=== PATIENT | female | born 1950 | race Caucasian/White ===

== ENCOUNTER 2025-01-09 15:33 | Outpatient (REF) | payer MEDICARE, OTHER, SELFPAY ==
--- NOTE | ~2025-01-09 | MR_ITS ---
EXAMINATION: MR BRAIN WITHOUT AND WITH CONTRAST CLINICAL INFORMATION: No evidence COMPARISON: None available. TECHNIQUE: Multiplanar, multisequence MRI of the brain was obtained before and after the intravenous administration of 4.5 mL gadolinium based (Gadavist) without reported immediate complications. FINDINGS: No restricted diffusion. No abnormal enhancement lesion and or mass within the intra-axial or the extra-axial compartment. Bilateral multifocal patchy and punctate deep periventricular white matter and subcortical white matter hyperintense T2 FLAIR signal involving centrum semiovale and greer radiata, similar findings in the estiven and left cerebellum. Focal susceptibility signal left temporal white matter. Flow-void signal within the main cerebral vessels is normal. Sellar/suprasellar region demonstrated no mass or signal abnormality. Craniocervical junction is intact and normal. MR/MR head/brain wo/w con IMPRESSION: No acute ischemia or acute brain abnormality. 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 Old lacunar infarcts involving the posterior circulation. No abnormal enhancing lesion and or mass. 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 Electronically signed by: Ger Glover MD 01/10/2025 07:21 AM EDT
[2025-01-09] MEDS: gadobutroL 7.5 ML VIAL IVPUSH (16:43)
--- OUTSIDE RECORDS SUMMARY | 2025-01-09 18:38 | XMS_ITS | Clinical Summary ---
Author Organization [facility] Address [address] [place] [address] Care Team Providers Care Data Conversion Developer Name Role Phone Champ King MD Primary Care Provider Allergies Active Allergy Reactions Criticality Noted Date Comments Dust 10/05/2017 Pollen Extract 10/05/2017 Medications Medication Sig Dispensed Refills Start Date End Date Status Atorvastatin Calcium (LIPITOR PO) Take by mouth. 0 Active cholecalciferol (VITAMIN D3) 1000 UNITS tablet Take 1,000 Units by mouth daily. 0 Active budesonide-formotero l (SYMBICORT) 160-4.5 MCG/ACT inhaler Inhale 2 inhalations into the lungs 2 (two) times a day. 0 Active Clopidogrel Bisulfate (PLAVIX PO) Take by mouth. 0 Active Active Problems Problem Noted Date Diagnosed Date Tobacco abuse disorder 10/27/2017 Overview: 30-40 pack years. Currently 10 cigarettes daily(10/27/2017) Pulmonary emphysema 10/27/2017 Hypercholesterolemia 10/27/2017 Osteoarthritis involving mul tiple joints on both sides of body 10/27/2017 Malignant neoplasm of upper lobe of right lung 0 10/05/2017 Cancer Staging:Clinical stage from 09/17/2017:Stage IIIA(cT1b, cN2, cM0) - Unsigned Pathologic:Stage IIIA(pT1b, pN2, cM0) - Unsigned Peripheral vascular obstructive disease 10/05/19 18 Family History Medical History Relation Name Comments Cancer Mother breast Cancer Sister breast Relation Name Status Comments Mother Sister Social History Tobacco Use Types Packs/Day Years Used Date Smoking Tobacco: Every Day Cigarettes 0.8 50 Started: 1964 Smokeless Tobacco: Never Tobacco Cessation:Ready to Q uit: Yes; Counseling Given: Yes Alcohol Use Standard Drinks/Week Comments Yes 0 (1 standard drink = 0.6 oz pur e alcohol) rare Sex and Gender Information Value Date Recorded Sex Assigned at Not on file Gender Identity Not on file Sexual Orientation Not on file Last Filed Vital Signs Vital Sign Reading Time Taken Comments Blood Pressure 140/77 10/05/2017 11:03 AM EST Pulse 72 10/05/2017 11:03 AM EST Temperature - - Respiratory Rate - - Oxygen Saturation - - Inhaled Oxygen Concentration - - Weight 53.8 kg (118 lb 9.6 oz) 10/05/2017 11:03 AM EST Height 160 cm (5' 3 ) 10/05/2017 11:03 AM EST Body Mass Index 21.01 10/05/2017 11:03 AM EST Plan of Treatment Health Maintenance Due Date Last Done Comments Hepatitis C Screening 1950 COVID-19 Vaccine (#1) 01/19/1957 Pneumococcal Vaccine (1 of 2 - PCV) 01/19/1958 Depression Screening 1964 Preventative Health Evaluation 01/19/1970 DTap / Tdap / Td (1 - Tdap) 01/19/1971 Shingrix-Zoster Vaccine (1 of 2) 01/19/1971 Colon Cancer Screening (Colonoscopy) 01/19/1997 Breast Cancer Screening (Mammogram) 01/19/2002 RSV Adult > 60+ Yrs or Pregn ant (1 - Risk 60-74 years 1-dose series) 2012 Fall Risk Assessment 01/19/2017 Osteoporosis Screening (DEXA Scan) 01/19/2017 Influenza Vaccine (#1) 2024 Hepatitis B Vaccines Aged Out No long er eligible based on patient's age to complete this topic RSV Ped < 20 months Aged Out No longe r eligible based on patient's age to complete this topic Care Teams Data Conversion Developer Relationship Specialty Start Date End Date Champ King MD [address] [place] [address] PCP - General Internal Medicine 09/30/17
--- OUTSIDE RECORDS SUMMARY | 2025-01-09 18:39 | XMS_ITS | Clinical Summary ---
Author Organization [address] Address [address] [place] [phone] Phone Care Team Providers Care Airworthiness Inspector Name Role Phone Nithin Ng MD Primary Care Provider Allergies Active Allergy Reactions Criticality Noted Date Comments Garlic 09/04/2024 Difficulty breathing Shrimp 09/04/2024 vomiting Medications acetaminophen (TYLENOL) 125 mg Take by mouth. Active albuterol HFA (PROAIR HFA ; PROVENTIL HFA ; VENTOLIN HFA) 90 mcg/actuation inhaler Inhale 2 puffs by mouth every 6 (six) hours if needed for wheezing. Active metoprolol succinate (TOPROL-XL) 25 mg 24 hr tablet Take 1 tablet (25 mg total) by mouth 1 (one) time each day. Do not crush or chew. 90 tablet 3 5 Active lisinopriL (PRINIVIL,ZESTR IL) 2.5 mg tablet Take 1 tablet (2.5 mg total) by mouth 1 (one) time each day. 90 each 5 Active atorvastatin (LIPITOR) 40 mg tablet Take 1 tablet (40 mg total) by mouth 1 (one) time each day. 90 each 5 Active aspirin 81 mg EC tablet Take 1 tablet (81 mg total) by mouth 1 (one) time each day. 90 tablet 3 5 Active varenicline tartrate (CHANTIX ISAAC) 0.5 mg (11)- 1 mg (42) tablet Take 0.5 mg by mouth 1 (one) time each day for 3 days (days 1-3), THEN 0.5 mg 2 (two) times a day for 4 days (days 4-7), THEN 1 mg 2 (two) times a day for 12 weeks. 53 tablet 1 5 03/19/20 25 Active primidone (MYSOLINE) 50 mg tablet Take 0.5 tablets (25 mg total) by mouth at bedtime. Active calcium carb/vit D3/minerals (CALCIUM-VITAMI N D ORAL) Take 1 tablet by mouth 2 times daily. 1 12/30/19 25 Discontinu ed(Prescri eliud Discontinu ed) aspirin 81 mg EC tablet Take 1 tablet (81 mg total) by mouth 1 (one) time each day. 90 tablet 1 4 12/20/19 25 Discontinu ed(Reorder ) metoprolol succinate (TOPROL-XL) 25 mg 24 hr tablet Take 1 tablet (25 mg total) by mouth 1 (one) time each day. Do not crush or chew. 90 tablet 1 4 12/20/19 25 Discontinu ed(Reorder ) lisinopriL (PRINIVIL,ZESTR IL) 2.5 mg tablet Take 1 tablet (2.5 mg total) by mouth 1 (one) time each day. 90 each 1 4 12/20/19 25 Discontinu ed(Reorder ) atorvastatin (LIPITOR) 40 mg tablet Take 1 tablet (40 mg total) by mouth 1 (one) time each day. 90 each 1 4 12/20/19 25 Discontinu ed(Reorder ) Active Problems Problem Noted Date Diagnosed Date Arterial embolism and thrombosis 12/29/2024 Overview (12/29/2024): Unfortunately, cannot get the records as they are from the old [employer] system at [facility] which I no longer have access to for unclear reasons. Furthermore for unclear reasons these records were never scanned into either [facility] medical record Based on patient description and notes from other medical providers: - It sounds like she presented with acute limb ischemia in 2017. She was found to have acute ischemia of her left toes-status post some sort of peripheral procedure-presumably by Dr. Castellon with thrombectomy with left SFA stent - Per Dr. Alvarado's last note from July 2020, she had negative arterial duplex Doppler ultrasounds of the bilateral lower extremities with absolutely no stenoses-therefore he believed that this was an acute embolic event rather than an atherosclerotic event - Due to intermittent follow-up, the patient has largely been without antiplatelet agents over the subsequent years up until recently-she has remained on baby aspirin at least Assessment & Plan (12/29/2024 5:00 PM EDT): History of acute limb ischemia in 2017. - Arrange ILR at [facility] to investigate potential atrial arrhythmias leading to acute and occult thrombus and cardioembolic phenomenon. - Continue baby aspirin. Orders: Case Request EP Lab: Loop recorder insertion Cardiomyopathy, nonischemic 12/29/2024 Overview (12/29/2024): - Patient presented with an unwitnessed syncopal episode in January 2024 after her niece found her lying on the floor-she reported that before that episode she was feeling very ill-just very rundown - She was diagnosed acute right lower lobe ehumovdgy-npocqevvu-hiiwattk bacterial and was treated with antibiotics -She was found to have an elevated high-sensitivity troponin during that visit- she was treated with 48 hours of IV heparin and started on low-dose lisinopril and metoprolol -echocardiogram during the above-mentioned hospitalization showed EF of 40 to 45% with inferobasal akinesis -Cardiac cath performed during the hospitalization in January 2024 only moderate, diffuse disease in all 3 territories without discrete stenoses-therefore she has nonischemic cardiomyopathy Assessment & Plan (12/29/2024 5:00 PM EDT): Would like to update echocardiogram to assess if EF has recovered. It is possible that this was related to acute sick state. I will set up an echocardiogram first available to reassess. Coronary artery disease invo lving huslia coronary artery of huslia heart without angina pectoris 09/04/2024 Overview (12/29/2024): -status post non-ST elevation [place] in January 2024 with moderate nonobstructive epicardial coronary disease by cardiac cath Assessment & Plan (12/29/2024 5:00 PM EDT): - Nonobstructive disease, no anginal symptoms - Continue atorvastatin 40 mg and baby aspirin. Patient's last lipids were exceptionally high but I wonder if she was not taking atorvastatin faithfully. Would repeat a fasting lipid profile as is planned prior to her next PCP visit. Orders: Ambulatory referral to Cardiology ECG 12 lead Transthoracic echocardiogram (TTE) complete with PRN contrast, bubble, strain, and 3D order panel; Future Other osteoporosis without current pathological fracture 09/04/2024 Family history of breast cancer 09/04/2024 History of DVT (deep vein thrombosis) 09/04/2024 Overview (09/04/2024): DVT on left leg artery July 2017 status post drain placement. Was on Plavix previously. Hyperlipidemia 12/12/2020 Essential (primary) hypertension 12/12/2020 Assessment & Plan (12/29/2024 5:00 PM EDT): Well-controlled today on current regimen of low-dose lisinopril and metoprolol Insomnia 12/12/2020 Simple cyst of breast, left 12/12/2020 Overview (07/19/2024): 08/23/18 lateral upper L breast. Persistent asymmetry on diagnostic mammograms Vertigo 09/11/2020 Malignant neoplasm of right lung 09/11/2020 Overview (07/19/2024): T1N2 (llla) adenocarcinoma. Secondary malignant neoplasm of mediastinal lymph node S/P Incomplete chemotherapy . S/P VATS R upper lobectomy - [facility] 02/2018 Kidney stone 09/11/2020 Chronic headaches 05/05/2016 Resolved Problems Problem Noted Date Diagnosed Date Resolved Date NSTEMI (non-ST elevated myoc ardial infarction) 12/25/2024 12/29/2024 History of non-ST elevation myocardial infarction (NSTEMI) 09/04/2024 12/29/2024 Assessment & Plan (09/04/2024 12:36 PM EST): Diagnosed during admission to [facility] in January 2024. Elevated troponins. Cardiac cath done, no stent placed. Was started on medical management. Encounters Date Type Department Care Team Description 12/29/2024 1:00 PM EDT Office Visit [facility] - [address] [place] [address] Krista Kim MD Cardiomyopathy, nonischemic (CMS/HCC) (Primary Dx); Coronary artery disease involving huslia coronary artery of huslia heart without angina pectoris; Arterial embolism and thrombosis (CMS/HCC); Essential (primary) hypertension 12/27/2024 Telephone Adult Medicine [address] [phone] Nithin Ng MD 12/26/2024 12:25 PM EDT - 12/26/2024 11:59 PM EDT Hospital Encounter CT Scan - [address] [phone] Malignant neoplasm of upper lobe of right lung (CMS/HCC) Discharge Disposition: Home or Self Care 12/21/2024 9:42 AM EDT - 12/21/2024 11:59 PM EDT Hospital Encounter Radiology Department - [address] [phone] Encounter for screening mammogram for breast cancer Discharge Disposition: Home or Self Care 12/19/2024 1:15 PM EDT Office Visit Adult Medicine [address] [phone] iNthin Ng MD Essential (primary) hypertension (Primary Dx); Other osteoporosis without current pathological fracture; Hyperlipidemia, unspecified hyperlipidemia type; History of non-ST elevation myocardial infarction (NSTEMI); Coronary artery disease involving huslia coronary artery of huslia heart without angina pectoris; Malignant neoplasm of upper lobe of right lung (CMS/HCC); Tobacco dependency; Seborrheic keratosis from Last 3 Months Immunizations Name Administration Dates Next Due Pneumococcal conjugate 20 va lent (Prevnar 20, PCV 20) 2mo and older 09/04/2024 Tdap Tetanus diptheria acell ular pertussis (Boostrix; Adacel) 7yo and older 09/04/2024 Surgical History Surgery Date Site/Laterality Comments TONSILLECTOMY PROCEDURE: HISTORICAL TONSILLECTOMY WISDOM TOOTH EXTRACTION PROCEDURE: HISTORICAL WISDOM TEETH EXTRACTION OTHER SURGICAL HISTORY PROCEDURE: CT ARTHROSCOPY TEMPOROMANDIBULAR JOINT SURGICAL OTHER SURGICAL HISTORY Right PROCEDURE: CT RMVL LUNG XCP TOT PNEUMONECTOMY SLEEVE LOBECTOMY CATARACT EXTRACTION Right PROCEDURE: HISTORICAL CATARACT REMOVAL OTHER SURGICAL HISTORY 07/2017 Left PROCEDURE: HISTORY OTHER; COMMENT: Iliac artery stent Medical History Medical History Date Comments Arthritis DX:Arthritis Sinus headache DX:Sinus headach e Tobacco abuse DX:Tobacco abuse Hyperlipidemia 12/12/2020 DX:Hyperlipidemi a Essential (primary) hypertension 12/12/2020 DX:Essential (primary) hypertension Chronic headaches 05/05/2016 DX:Chronic hea daches History of cataract surgery, right 12/12/2020 DX:History of cataract surgery, right History of DVT (deep vein thrombosis) 12/12/2020 DX:History of DVT (deep vein thrombosis); COMMENT: 07/2017 L iliac artery. Stent Dr Lemos Insomnia 12/12/2020 DX:Insomnia Kidney stone 09/11/2020 DX:Kidney stone Malignant neoplasm of right lung (CMS/HCC) 09/11/2020 DX:Malignant neoplasm of rig ht lung (HCC); COMMENT: T1N2 (llla) adenocarcinoma. Secondary malignant neoplasm of mediastinal lymph node S/P Incomplete chemotherapy . S/P VATS R upper lobectomy - [facility] 02/2018 Simple cyst of breast, left 12/12/2020 DX:S imple cyst of breast, left; COMMENT: 08/23/18 lateral upper L breast. Persistent asymmetry on diagnostic mammograms Vertigo 09/11/2020 DX:Vertigo Family History Medical History Relation Name Comments Breast cancer Aunt 3x aunts Heart attack Father CHF Breast cancer Mother Cirrhosis Mother Leukemia Other niece 10 years Breast cancer Sister 1 Relation Name Status Comments Aunt Father Mother Other Sister 1 Sister 2 Alive Sister 3 Alive Sister 4 Alive Sister 5 Alive Sister 6 Alive Social History Tobacco Use Types Packs/Day Years Used Date Smoking Tobacco: Every Day Cigarettes 0.5 59.3 Started: [birth year]/04/1965 Smokeless Tobacco: Never Tobacco Cessation:Ready to Q uit: Not Asked; Counseling Given: Not Answered Alcohol Use Standard Drinks/Week Comments Yes 0 (1 standard drink = 0.6 oz pur e alcohol) Housing Instability Answer Date Recorde d Are you worried that in the next 2 months you may not have stable housing? Yes 08/29/2024 Food Access & Nutrition Answer Date Rec orded Do you have access to a vari ety of food including fruits and vegetables? Yes 08/29/2024 Access to Healthcare Answer Date Record ed Within the last 3 months, ho w many times did you visit the emergency department for your medical care? 1 08/29/2024 Health Literacy Answer Date Recorded How often do you need to hav e someone help you when you read instructions, pamphlets, or other written material from your doctor or pharmacy? Never 08/29/2024 Caregiver: How often do you need to have someone help you when you read instructions, pamphlets, or other written material from your doctor or pharmacy? Not on file 08/29/2024 Financial Risk Answer Date Recorded How hard is it for you to pa y for the very basics like food, housing, medical care, and air conditioning / heating? Very hard 08/29/2024 Transportation Answer Date Recorded Has the lack of transportati on kept you from meetings, work, or from getting things needed for daily living? No Has the lack of transportati on kept you from medical appointments or from getting medications? No 08/29/2024 Social Isolation Answer Date Recorded How often do you feel lonely or isolated from those around you? Sometimes 08/29/2024 Food Risk Answer Date Recorded Within the past 12 months we worried whether our food would run out before we got money to buy more. Sometimes true 024 Within the past 12 months th e food we bought just didn't last and we didn't have money to get more. Never true 08/29/2024 Dependent Care Answer Date Recorded Do you need help finding or paying for care for your loved ones. For example, child therapist or elderly care for an older adult? No 08/29/2024 Education Answer Date Recorded Do you think completing more education or training, like finishing a GED, going to college, or learning a trade, would be helpful for you? N/A 08/29/2024 Employment and Income Answer Date Recor ded During the last four weeks, have you been actively looking for work? Yes 08/29/2024 Living Situation Answer Date Recorded What is your living situation? 1 10/29/2023 Comments No Sex and Gender Information Value Date Recorded Sex Assigned at Not on file Legal Sex Female 6:12 AM EST Gender Identity Not on file Sexual Orientation Not on file Obstetrics History Para Term AB IAB SAB Ectopic Multiple Livin g Live Births 0 0 0 Last Filed Vital Signs Vital Sign Reading Time Taken Comments Blood Pressure 122/76 12/29/2024 12:58 PM EDT Pulse 65 12/29/2024 12:58 PM EDT Temperature 35.9 ??C (96.6 ??F) 12/19/2024 1:11 PM ED T Respiratory Rate 12 12/19/2024 1:11 PM EDT Oxygen Saturation 95% 12/29/2024 12: 58 PM EDT Inhaled Oxygen Concentration - - Weight 49.8 kg (109 lb 12.8 oz) 025 12:58 PM EDT Height 157.5 cm (5' 2 ) 12/29/2024 12:5 8 PM EDT Body Mass Index 20.08 12/29/2024 12:58 PM EDT Plan of Treatment Upcoming Encounters Date Type Department Care Team (Late st Contact Info) Description 01/15/2025 9:20 AM EDT Office Visit [facility] [address] [facility] [address] [place] [address] Krista Kim MD [address] [place] [address] 01/23/2025 12:45 PM EDT Appointment [facility] [address] [place] [phone] 03/15/2025 2:30 PM EDT Ancillary Procedure [facility] [address] [facility] [address] [place] [phone] 07/03/2025 2:45 PM EDT Appointment [facility] [address] [place] [phone] Scheduled Procedures Name Priority Associated Diagnoses Date/Ti me LOOP RECORDER INSERTION Arterial embolism and thrombosis (CMS/HCC) Health Maintenance Due Date Last Done Comments Zoster Vaccines (1 of 2) 01/19/1971 RSV Immunization Adult Patients (1 - Risk 60-74 years 1-dose series) 2012 Lung Cancer Screening (Low Dose CT) 09/06/2022 Medicare Annual Wellness Visit 09/06/2022 COVID-19 Vaccine ( season) 2024 01/19/2024, 09/05/2021, 01/18/2021, Additional history exists Depression Screening 08/29/2025 08/29/2024 Social Influencers of Health Screening 08/29/2025 08/29/2024 Hypertension/CHF/CAD Annual BMP Blood Test 09/04/2025 09/04/2024, 02/11/2018, 01/21/2018, Additional history exists Falls Risk Assessment 12/19/2025 12/19/2024 Breast Cancer Screening 12/21/2026 12/21/2024, 08/19 Cholesterol Screening (Lipid Panel) 09/04/2029 09/04/2024, 01/07/2021 Osteoporosis Screening (Bone Density Screening) 01/28/2031 01/28/2021 DTaP,Tdap,and Td Vaccines (2 - Td or Tdap) 09/04/2034 09/04/2024 Hepatitis C Screening Completed 12/03/2017 Colorectal Cancer Screening: Colonoscopy Discontinued 07/21/2019 Pneumococcal Vaccine: 50+ Years Completed 09/04/2024 HIB Vaccines Aged Out No longer eligi ble based on patient's age to complete this topic HPV Vaccines Aged Out No longer eligi ble based on patient's age to complete this topic Hepatitis A Vaccines Aged Out No long er eligible based on patient's age to complete this topic Hepatitis B Vaccines Aged Out No long er eligible based on patient's age to complete this topic IPV Vaccines Aged Out No longer eligi ble based on patient's age to complete this topic Influenza Vaccine Discontinued MMR Vaccines Aged Out No longer eligi ble based on patient's age to complete this topic Meningococcal ACWY Vaccine Aged Out N o longer eligible based on patient's age to complete this topic Meningococcal B Vaccine Aged Out No l onger eligible based on patient's age to complete this topic RSV Immunization Patients Under 20 months Aged Out No longer eligible based on patient's age to complete this topic Varicella Vaccines Aged Out No longer eligible based on patient's age to complete this topic Procedures Procedure Name Priority Date/Time Associated Diagnosis Comments ECG 12-LEAD Routine 12/29/2024 1:04 PM EDT Coronary artery disease involving huslia coronary artery of huslia heart without angina pectoris CT CHEST WO CONTRAST Routine 12/26/2024 1:05 PM EDT Malignant neoplasm of upper lobe of right lung (CMS/HCC) MG MAMMO DIGITAL SCREENING W TUAN BILAT Routine 12/21/2024 10:05 AM EDT Encounter for screening mammogram for breast cancer COMPREHENSIVE METABOLIC PANEL Routine 09/04/2024 12:58 PM EST History of non-ST elevation myocardial infarction (NSTEMI) Coronary artery disease involving huslia coronary artery of huslia heart without angina pectoris LIPID PANEL WITH REFLEX TO DIRECT LDL Routine 09/04/2024 12:58 PM EST Essential (primary) hypertension Hyperlipidemia, unspecified hyperlipidemia type History of non-ST elevation myocardial infarction (NSTEMI) Coronary artery disease involving huslia coronary artery of huslia heart without angina pectoris AIMEE DEXA AXIAL SKELETON Routine 01/28/2021 4:34 PM EDT Age-related osteoporosis without current pathological fracture HM COLONOSCOPY Routine 07/21/2019 from Last 3 Months or Most Recently Relevant to Health Maintenance Results * ECG 12 lead (12/29/2024 1:04 PM EDT) Ventricular Rate ECG 65 BPM GEMUSE Atrial Rate 65 BPM GEMUSE P-R Interval 150 ms GEMUSE QRS Duration 74 ms GEMUSE Q-T Interval 398 ms GEMUSE QTc 413 ms GEMUSE P Wave Ericson 87 degrees GEMUSE R Ericson 51 degrees GEMUSE T Ericson 76 degrees GEMUSE ECG Interpretation Normal sinus rhythm Normal ECG When compared with ECG of 16-JAN-2024 19:15, QT has shortened Confirmed by KRISTA KIM ([id number]) on 12/29/2024 3:42:07 PM GEMUSE 12/29/2024 1:04 PM EDT 12/29/2024 3:42 PM EDT us Krista Kim MD ECG ORDERABLES Final Result GEMUSE * CT Chest wo Contrast (12/26/2024 1:05 PM EDT) Anatomical Region Laterality Modality Body Computed Tomogra phy 12/26/2024 8:35 PM EDT Impressions 12/26/2024 8:48 PM EDT Centrilobular emphysema. No CT evidence of recurrence. There has been complete clearing of the extensive right lower lobe pneumonia seen on the previous study. Mild compression of L1 vertebral body, new since the previous study. -------- FINAL REPORT -------- Dictated By: Gina Escobedo Dictated Date: 12/26/2024 20:35 ET Assigned Physician: Gina Escobedo Reviewed and Electronically Signed By: Gina Escobedo Signed Date: 12/26/2024 20:48 ET Workstation ID: [id number] Transcribed By: Self Edit Transcribed Date: 12/26/2024 20:35 ET Narrative 12/26/2024 8:[address] CHEST WO CONTRAST HISTORY: History of right lung adenocarcinoma schwannoma. Status post VATS right upper lobectomy 02/2018. TECHNIQUE: Multiple axial images are obtained from the thoracic inlet through the upper abdomen. COMPARISON: CT angiography chest 01/16/2024. FINDINGS: ?? There is mild centrilobular emphysema. There is scarring of the right upper lobe. 2 mm pulmonary nodule the left lower lobe on image 168 is unchanged. There is no pleural effusion, infiltrate, pneumothorax, cardiomegaly, or pericardial effusion. There is moderate atherosclerosis of the thoracic aorta and visualized proximal abdominal aorta. Calcification of the coronary arteries. No lymphadenopathy is seen. However, evaluation is limited by lack of intravenous contrast. The partially visualized upper abdominal organs are unremarkable. No suspicious bone lesions seen. There is mild compression of the approximately L1 vertebral body, new since the previous study. Procedure Note Gina Escobedo MD - 12/26/2024 CT CHEST WO CONTRAST HISTORY: History of right lung adenocarcinoma schwannoma. Status post VATSright upper lobectomy 02/2018. TECHNIQUE: Multiple axial images are obtained from the thoracic inletthrough the upper abdomen. COMPARISON: CT angiography chest 01/16/2024. FINDINGS: There is mild centrilobular emphysema. There is scarring of the rightupper lobe. 2 mm pulmonary nodule the left lower lobe on image 168 is unchanged. There is no pleural effusion, infiltrate, pneumothorax, cardiomegaly, orpericardial effusion. There is moderate atherosclerosis of the thoracic aorta and visualizedproximal abdominal aorta. Calcification of the coronary arteries. No lymphadenopathy is seen. However, evaluation is limited by lack ofintravenous contrast. The partially visualized upper abdominal organs are unremarkable. No suspicious bone lesions seen. There is mild compression of theapproximately L1 vertebral body, new since the previous study. IMPRESSION: Centrilobular emphysema. No CT evidence of recurrence. There has been complete clearing of the extensive right lower lobepneumonia seen on the previous study. Mild compression of L1 vertebral body, new since the previous study. -------- FINAL REPORT -------- Dictated By: Gina Escobedo Dictated Date: 12/26/2024 20:35 ET Assigned Physician: Gina Escobedo Reviewed and Electronically Signed By: Gina Escobedo Signed Date: 12/26/2024 20:48 ET Workstation ID: [id number] Transcribed By: Self Edit Transcribed Date: 12/26/2024 20:35 ET us Nithin Ng MD IMG CT PROCEDURES Jumana l Result * MG Mammo Digital Screening w Tuan bilat (12/21/2024 10:05 AM EDT) Anatomical Region Laterality Modality Breast Bilateral Mammography 12/21/2024 8:23 PM EDT Impressions 12/21/2024 8:25 PM EDT No mammographic evidence of malignancy. BREAST DENSITY: C - The breasts are heterogeneously dense which may obscure small masses. BI-RADS CATEGORY: 1 - NEGATIVE RECOMMENDATION: Screening bilateral mammogram is recommended in 1 year. MAMMO LOCATION: [facility], [address] [place] [address], [phone], . -------- FINAL REPORT -------- Dictated By: Pearl Deluna Dictated Date: 12/21/2024 20:23 ET Assigned Physician: Pearl Deluna Reviewed and Electronically Signed By: Pearl Deluna Signed Date: 12/21/2024 20:25 ET Workstation ID: [id number] Transcribed By: Self Edit Transcribed Date: 12/21/2024 20:23 ET Narrative 12/21/2024 8:25 PM EDT EXAM: Screening Mammogram CLINICAL: 74 years old, Female, routine annual exam. COMPARISON: 08/19/2018 TECHNIQUE: Bilateral MLO and CC views were obtained digitally with 3-D mammogram (digital breast tomosynthesis). Computer-aided detection was utilized in evaluation of this exam (CAD). FINDINGS: No new suspicious mass, architectural distortion, or suspicious calcifications. Procedure Note Pearl Deluna MD - 12/21/2024 EXAM: Screening Mammogram CLINICAL: 74 years old, Female, routine annual exam. COMPARISON: 08/19/2018 TECHNIQUE: Bilateral MLO and CC views were obtained digitally with 3-Dmammogram (digital breast tomosynthesis). Computer-aided detection wasutilized in evaluation of this exam (CAD). FINDINGS: No new suspicious mass, architectural distortion, or suspiciouscalcifications. IMPRESSION: No mammographic evidence of malignancy. BREAST DENSITY: C - The breasts are heterogeneously dense which mayobscure small masses. BI-RADS CATEGORY: 1 - NEGATIVE RECOMMENDATION: Screening bilateral mammogram is recommended in 1 year. MAMMO LOCATION: [facility], [address] [place] [address], [phone], . -------- FINAL REPORT -------- Dictated By: Pearl Deluna Dictated Date: 12/21/2024 20:23 ET Assigned Physician: Pearl Deluna Reviewed and Electronically Signed By: Pearl Deluna Signed Date: 12/21/2024 20:25 ET Workstation ID: [id number] Transcribed By: Self Edit Transcribed Date: 12/21/2024 20:23 ET us Nithin Ng MD IMG BI PROCEDURES Jumana l Result * (ABNORMAL) Lipid panel with reflex to direct LDL (09/04/2024 12:58 PM EST) Cholesterol 393(H) 0 - 200 mg/dL LAB CHEMISTRY METHOD 09/04/2024 4:57 PM EST [facility] Triglycerides 323(H) 0 - 150 mg/dL LAB CHEMISTRY METHOD 09/04/2024 4:57 PM EST [facility] HDL 54 >=40 mg/dL LAB CHEMISTRY METHOD 09/04/2024 4:57 PM EST [facility] LDL Calculated 274(H) 0 - 100 mg/dL LAB CHEMISTRY METHOD 09/04/2024 4:57 PM EST [facility] VLDL Cholesterol Hemanth 64.6 mg/dL LAB CHEMISTRY METHOD 09/04/2024 4:57 PM EST [facility] Non HDL Chol. (LDL+VLDL) 339(H) <145 mg/dL LAB CHEMISTRY METHOD 09/04/2024 4:57 PM EST [facility] Chol/HDL Ratio 7.3(H) 0.0 - 4.4 LAB CHEMISTRY METHOD 09/04/2024 4:57 PM EST [facility] Blood Venous blood specimen / Unknown Venipuncture / Unknown 09/04/2024 12:58 PM EST 09/04/2024 12:58 PM EST us Nithin Ng MD LAB BLOOD ORDERABLES F inal Result [facility] [address] [place] [address], [place] [phone] * Comprehensive metabolic panel (09/04/2024 12:58 PM EST) Sodium 141 133 - 145 mmol/L LAB CHEMISTRY METHOD 09/04/2024 4:57 PM [facility] Potassium 4.5 3.5 - 5.5 mmol/L LAB CHEMISTRY METHOD 09/04/2024 4:57 PM [facility] Chloride 106 96 - 110 mmol/L LAB CHEMISTRY METHOD 09/04/2024 4:57 PM [facility] CO2 26 21 - 32 mmol/L LAB CHEMISTRY METHOD 09/04/2024 4:57 PM [facility] Anion Gap 9 3 - 11 LAB CHEMISTRY METHOD 09/04/2024 4:57 PM [facility] Glucose 99 70 - 100 mg/dL LAB CHEMISTRY METHOD 09/04/2024 4:57 PM [facility] BUN 19 5 - 25 mg/dL LAB CHEMISTRY METHOD 09/04/2024 4:57 PM [facility] Creatinine 0.88 0.50 - 1.10 mg/dL LAB CHEMISTRY METHOD 09/04/2024 4:57 PM [facility] eGFR 70 >=60 mL/min/1. 73m2 LAB CHEMISTRY METHOD 09/04/2024 4:57 PM [facility] Comment:Calculation based on the??Chronic Kidney Disease Epidemiology Collaboration (CKD-EPI) equation refit??without adjustment for race. BUN/Creatinine Ratio 21.6 LAB CHEMISTRY METHOD 09/04/2024 4:57 PM [facility] Calcium 10.1 8.5 - 10.5 mg/dL LAB CHEMISTRY METHOD 09/04/2024 4:57 PM [facility] AST (SGOT) 27 10 - 42 unit/L LAB CHEMISTRY METHOD 09/04/2024 4:57 PM [facility] ALT (SGPT) 29 10 - 60 unit/L LAB CHEMISTRY METHOD 09/04/2024 4:57 PM [facility] Alkaline Phosphatase 92 42 - 121 unit/L LAB CHEMISTRY METHOD 09/04/2024 4:57 PM EST [facility] Total Protein 7.5 6.0 - 8.0 g/dL LAB CHEMISTRY METHOD 09/04/2024 4:57 PM EST [facility] Albumin 4.1 3.2 - 5.0 g/dL LAB CHEMISTRY METHOD 09/04/2024 4:57 PM EST [facility] Total Bilirubin 0.6 0.0 - 1.4 mg/dL LAB CHEMISTRY METHOD 09/04/2024 4:57 PM EST [facility] Blood Venous blood specimen / Unknown Venipuncture / Unknown 09/04/2024 12:58 PM EST 09/04/2024 12:58 PM EST us Nithin Ng MD LAB BLOOD ORDERABLES F inal Result [facility] [address] [place] [address], * AIMEE DEXA AXIAL SKELETON (01/28/2021 4:34 PM EDT) Anatomical Region Laterality Modality Mammography 01/28/2021 1:37 PM EDT Narrative 01/28/2021 4:34 PM EDT [facility] Diagnostic Imaging Department [address] [place] [address] Patient: ??MADDIE JACOBS ?/Age/Sex: 1950 - 71 - F Unit#: ??[id number] ? Location/Status: ??SPDIMAM/REG CLI ? Mnemonic/Ordering Site: ??MAMDEXAAX/SPMAM Ordering Physician: ??JOSS RAJPUT MD Aimee Dexa Axial Skeleton - 01/28/21 - 1441 History: Low estrogen state due to menopause. Current smoker. Findings: Bone densitometry is performed utilizing dual energy x-ray absorptiometry (DXA) in the Gridium unit. The lumbar spine and proximal femora are evaluated in the AP projection. The FRAX questionaire was completed. The results indicate osteoporosis, with a right femoral neck T-score of -4.4. The detailed DEXA report will be mailed to the referring physician's office. DualFemur FRAX: 10-year Probability of Fracture: Major Osteoporotic 42.4 percent ??Hip 31.7 percent. IMPRESSION: Osteoporosis. [id number] Dictating Physician: ??JESSICA PACHECO MD Electronically Signed by: ??JESSICA PACHECO MD Dic Date/Time: ??01/28/21 1632 Sign date/Time: ??01/28/21 1634 Procedure Note Jessica Pacheco MD - 09/22/2022 [facility] Diagnostic Imaging Department [address] [place] [address] Patient: SAULNATHALIEMADDIENANCIE Umanzor./Age/Sex: 1950 - 71 - F Unit#: [id number] Location/Status: SPDIMAM/REG CLI Mnemonic/Ordering Site: MAMDEXAAX/SPMAM Ordering Physician: JOSS RAJPUT MD Aimee Dexa Axial Skeleton - 01/28/21 - 1441 History: Low estrogen state due to menopause. Current smoker. Findings: Bone densitometry is performed utilizing dual energy x-ray absorptiometry(DXA) in the Gridium unit. The lumbar spine and proximal femora areevaluated in the AP projection. The FRAX questionaire was completed. The results indicate osteoporosis, with a right femoral neck T-score of-4.4. The detailed DEXA report will be mailed to the referring physician'soffice. DualFemur FRAX: 10-year Probability of Fracture: Major Osteoporotic 42.4 percent Hip 31.7 percent. IMPRESSION: Osteoporosis. 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 Health Care Decision (hx) 2024 AD JIMENEZ DIRECTIVE Health Care Decision (hx) 01/19/2024 AD JIMENEZ DIRECTIVE Health Care Decision (hx) 07/19/2017 AD JIMENEZ DIRECTIVE Health Care Decision (hx) 07/19/2017 AD JIMENEZ DIRECTIVE Health Care Decision (hx) 07/19/2017 AD JIMENEZ DIRECTIVE Health Care Decision (hx) 07/19/2017 AD JIMENEZ DIRECTIVE Health Care Decision (hx) 07/19/2017 AD JIMENEZ DIRECTIVE Health Care Decision (hx) 07/19/2017 AD JIMENEZ DIRECTIVE Health Care Decision (hx) 07/19/2017 AD JIMENEZ DIRECTIVE Health Care Decision (hx) 07/19/2017 AD JIMENEZ DIRECTIVE Health Care Decision (hx) 07/19/2017 AD JIMENEZ DIRECTIVE Health Care Decision (hx) 07/19/2017 AD JIMENEZ DIRECTIVE Health Care Decision (hx) 07/19/2017 AD JIMENEZ DIRECTIVE Health Care Decision (hx) 07/19/2017 AD JIMENEZ DIRECTIVE Health Care Decision (hx) 07/19/2017 AD JIMENEZ DIRECTIVE Health Care Decision (hx) 07/19/2017 AD JIMENEZ DIRECTIVE Care Teams Airworthiness Inspector Relationship Specialty Start Date End Date Nithin Ng MD [address] [place] [address] PCP - General Internal Medicine 09/04/24
--- OUTSIDE RECORDS SUMMARY | 2025-01-09 18:39 | XMS_ITS | Data Portability ---
Author Organization KEKE Fernandez s, [address] Address [address] [place] [address] Assessment No assessment recorded. Plan of Treatment Reminders Order Date Submit Date Provider Last Modified By Organization Details Last Modified Time Details Appointments None recorded. Lab None recorded. Referral None recorded. Procedures None recorded. Surgeries None recorded. Imaging None recorded. Medication Orders amoxicillin 875 mg-potassiu m clavulanate 125 mg tablet 2023 [place] [facility], [address] [place], [address], 4 13:28:42 diclofenac sodium 50 mg tablet,stephy yed release 2023 024 [place] [facility], [address] [place], [address], 4 13:28:42 amoxicillin 875 mg-potassiu m clavulanate 125 mg tablet 2023 [address]24 [place] [address] [facility], [address] [place], [address], 4 13:14:51 diclofenac sodium 50 mg tablet,stephy yed release 2023 024 [place] [address] [facility], [address] [place], [address], 4 13:14:58 Patient TargetsNo targets recorded. Patient InstructionsNo instructions recorded. Reason for Referral None Reported. Problems Name Problem SNOMED Code Status Onset Date Resolution Date Notes Provider Name and Address Organization Details Recorded Time Hypertensive disorder 60516269 Active 2023 Emelia Mckenna luis armando [place] - [facility] 4 15:00:45 Malignant tumor of lung 434226395 Active 2023 Guanako Isrrael durán [place] - [facility] 4 13:18:10 Problem Notes None recorded. Procedures Surgical History Date Name Laterality Status Provider Name and Address Organization Details Recorded Time 7 lobectomy of lung completed Guanako Arcos [facility] 05/26/2024 13:17:42 7 insertion of stent into vein completed Guanako Arcos [facility]24 13:17:58 Imaging Results None recorded. Procedure Notes None recorded. Medical Equipment None Reported. Allergies No known drug allergies Medications Name Sig Start Date Stop Date Status Note LastModified by Organization Details LastModified Time valacyclovi r 1 gram tablet TAKE ONE TABLET BY MOUTH THREE TIMES A DAY FOR 7 DAYS 05/26 completed Not Available Not Available Not Available prednisone 20 mg tablet TAKE TWO TABLETS BY MOUTH EVERY DAY FOR 4 DAYS TAKE ONE TABLET BY MOUTH EVERY DAY FOR 4 DAYS TAKE ONE-HALF TABLET BY MOUTH EVERY DAY FOR 4 D 04/05 completed Not Available Not Available Not Available penicillin V potassium 500 mg tablet TAKE TWO TABLETS BY MOUTH NOW, THEN TAKE ONE TABLET BY MOUTH FOUR TIMES A DAY FOR 10 DAYS 04/05 completed Not Available Not Available Not Available oxycodone-a cetaminophe n 5 mg-325 mg tablet TAKE 1 TABLET BY MOUTH EVERY 6 HOURS NEEDED FOR SEVERE PAIN PAIN SCALE 7-10 05/26 completed Not Available Not Available Not Available IBU 600 mg tablet TAKE ONE TABLET BY MOUTH THREE TIMES A DAY MAX OF 2400MG PER DAY) 05/26 completed Not Available Not Available Not Available gabapentin 300 mg capsule TAKE ONE CAPSULE BY MOUTH THREE TIMES A DAY FOR 10 DAYS 05/26 completed Not Available Not Available Not Available diclofenac sodium 50 mg tablet,stephy yed release Take 1 tablet twice a day by oral route for 7 days. 2023 active Not Available Not Available Not Avai lable metoprolol succinate ER 25 mg tablet,exte nded release 24 hr TAKE ONE TABLET BY MOUTH EVERY DAY active Not Available Not Available No t Available methylpredn isolone 4 mg tablets in a dose pack TAKE SIX TABLETS FOR 1 DAY, THEN FIVE TABLETS FOR 1 DAY, THEN FOUR TABLETS FOR 1 DAY,THEN THREE TABLETS FOR 1 DAY, THEN TWO TABLETS FOR 1 DA 04/05 completed Not Available Not Available Not Available lisinopril 2.5 mg tablet TAKE ONE TABLET BY MOUTH EVERY DAY active Not Available Not Available No t Available doxycycline hyclate 100 mg tablet TAKE ONE TABLET BY MOUTH TWICE A DAY 04/05 completed Not Available Not Available Not Available amoxicillin 875 mg-potassiu m clavulanate 125 mg tablet Take 1 tablet every 12 hours by oral route for 10 days. 2023 active Not Available Not Available Not Avai lable oxycodone 5 mg tablet TAKE ONE TABLET BY MOUTH EVERY 6 HOURS NEEDED FOR SEVERE BREAKTHRO UGH PAIN 05/26 completed Not Available Not Available Not Available Vitals Date Recorded Body height Body mass index (BMI) Body weight Oxygen saturation Oxygen saturation in Arterial blood by Pulse oximetry Heart rate Respiratory rate Body temperature Systolic blood pressure Diastolic blood pressure Provider Name and Address Organization Details Last Updated DateTime 4 157.48 cm 18.8 kg/m2 20500.0 1 g 95 % 95 % 60 /min 18 /min 98.2 [degF] 86 mm[Hg] 63 mm[Hg] Emelia Mckenna [facility] 15:01:58 Date Recorded Body height Body mass index (BMI) Body weight Body temperature Respiratory rate Oxygen saturation Oxygen saturation in Arterial blood by Pulse oximetry Heart rate Pain severity - 0-10 verbal numeric rating [Score] - Reported Systolic blood pressure Diastolic blood pressure Provider Name and Address Organization Details Last Updated DateTime 4 157.48 cm 19 kg/m2 02062.6 1 g 98.6 [degF] 16 /min 97 % 97 % 78 /min 4 92 mm[Hg] 66 mm[Hg] Guanako Esquivel [facility] 13:21:16 Social History Question Answer Notes LastModified by Organizat ion Details LastModified Time Tobacco Smoking Status Current Some Day Smoker KEKE Villatoro [facility] 05/26/2024 13:16:58 What Is Your Level Of Alcohol Consumption? None Information not available 05/26/2024 How Many Times Per Week Do You Consume Alcohol? Less Than 1 Time Per Week Information not available 04/05/2024 Are You Currently Employed? No Information not available 04/05/2024 When Did You Quit Smoking? 1-5yearssin celastcigabriel ette Information not available 04/05/2024 Have You Had A Flu Shot This Season? Yes Information not available 05/26/2024 Have You Had Direct Contact, Or Contact During Intimacy, With Monkeypox Rash, Scabs, Or Body Fluids From A Person With Monkeypox? No Information not available 04/05/2024 What Was The Date Of Your Most Recent Tobacco Screening? 05/26/2024 Information not available 05/26/2024 What Is Your Relationship Status? Information not available 04/05/2024 How Much Tobacco Do You Smoke? 0.5 PPD Information not available 04/05/2024 Do You Use Any Illicit Or Recreational Drugs? No Information not available 04/05/2024 Have You Recently Traveled Abroad? No Information no t available 04/05/2024 Are You Currently In School? No Information not available 04/05/2024 Do You Or Have You Ever Used Any Other Forms Of Tobacco Or Nicotine? No Information not available 04/05/2024 Sex: Unknown Functional Status None recorded. Mental Status None recorded. Family History Relationship Description Onset Age of this Age Resolved Age Notes LastModified by Organization Details LastModified Time Father Hypertensive disorder Not available 2023 13:16:03 Father Diabetes mellitus Not available 2023 13:16:08 Mother Malignant tumor of breast Not available 2023 13:16:25 Sister Malignant tumor of breast Not available 2023 13:16:25 Medical History No medical history recorded. Gynecological History Statement/Question Response Date of LMP Is there any chance of ? No Obstetrics History GPAL:G 0 P 0 0 0 0 Past Encounters Encounter ID Performer Location Encounter Start Date Encounter Closed Date Diagnosis/Indication Diagnosis SNOMED-CT Code Diagnosis ICD10 Code Diagnosis Note [id number] [address] [address] [facility] [place] [id number] 07/17/2017 13:30:45 07/17/2017 14:09:08 [id number] KEKE Spence [address] [facility] [address] [facility] [place] [id number] 04/05/2024 14:48:10 04/05/2024 15:13:02 Cervical lymphadenitis 8464733 I88.9 You have been diagnosed with lymphadeni tis. This is enlargemen t in one or more or your lymph nodes lymph nodes, usually due to infection. Lymph nodes are filled with white blood cells that help your body fight infections . When lymph nodes become infected, it's usually because an infection started somewhere else in your body. The treatment is antibiotic s to treat the infection. Take the antibiotic s as prescribed . Take with food to decrease stomach upset.?If there are any changes in your condition, your symptoms worsen, you develop any new or unexpected symptoms, or do not improve, please follow up with your primary care provider or the Emergency Department for further evaluation .?You are being seen in an urgent care setting today. We do very limited testing and evaluation in this setting. Also, you must understand that you have received urgent care treatment and that you may be released before all of your medical problems are known or treated. We cannot perform advanced imaging or bloodwork evaluation . Given these limitation s, it is very important that you follow closely with your primary care doctor or go to the Emergency Department for any worsening or concerning symptoms that you have or may develop. [id number] KEKE Spence [address] [facility] [address] [facility] [place] [address] 05/26/2024 13:02:11 05/26/2024 13:30:01 Cervical lymphadenitis 9915664 I88.9 You have been diagnosed with lymphadeni tis. This is enlargemen t in one or more or your lymph nodes lymph nodes, usually due to infection. Lymph nodes are filled with white blood cells that help your body fight infections . When lymph nodes become infected, it's usually because an infection started somewhere else in your body. The treatment is antibiotic s to treat the infection. Take the antibiotic s as prescribed . Take with food to decrease stomach upset.?If there are any changes in your condition, your symptoms worsen, you develop any new or unexpected symptoms, or do not improve, please follow up with your primary care provider or the Emergency Department for further evaluation .?You are being seen in an urgent care setting today. We do very limited testing and evaluation in this setting. Also, you must understand that you have received urgent care treatment and that you may be released before all of your medical problems are known or treated. We cannot perform advanced imaging or bloodwork evaluation . Given these limitation s, it is very important that you follow closely with your primary care doctor or go to the Emergency Department for any worsening or concerning symptoms that you have or may develop. Health Concerns Section Related Observation LastModified by Organization Detai ls LastModified Time None Recorded Concern Status LastModified by Organization Details LastModified Time None Recorded Advance Directives Directive None Recorded Payers Encounter Date Sequence Insurance Name Policy Number Policy Diehl Covered Member ID Diehl Member ID Guarantor Name 07/17/2017 1 [place] [employer] Carlo Thakkar [id number] Carol Thakkar 07/17/2017 2 [employer] (MEDICARE SUPPLEMENT) Carol Thakkar [id number] Carol Thakkar 04/05/2024 2 [facility] (MEDICARE SUPPLEMENT) Carol Thakkar [id number] Carol Thakkar 04/05/2024 1 [place] [employer] Carol Thakkar [id number] Carol Thakkar 05/26/2024 2 [facility] (MEDICARE SUPPLEMENT) Carol Thakkar [id number] Carol Thakkar 05/26/2024 1 [place] [employer] Carol Thakkar [id number] Carol Thakkar Notes Date Note Type Note Provider Name and Address Organization Details Recorded Time 04/05/2024 text/html 74 y/o female he re with R sided cervical lymph swelling, very painful, for the past 2 days, worsening. 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 She also has numbness to her lower jaw, waiting for neurology appt KEKE Spence [address] [place], [address], [place] - [facility] 05/26/2024 13:30:16 OBGyn Episode No OBEpisode recorded.
--- OUTSIDE RECORDS SUMMARY | 2025-01-09 18:39 | XMS_ITS ---
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 Furthermore for unclear reasons these records [facility] Based on patient description and notes from other medical providers: - It sounds like she presented with acute limb ischemia in 2016. She was found to have acute ischemia [...] ischemia in 2017. - Arrange ILR at [facility] to investigate potential atrial arrhythmias leading to [...] She was diagnosed acute right lower lobe tprjxvmeg-fzsjdnrcz-ymjbqhag bacterial and was treated with antibiotics -She [...] to reassess. Coronary artery disease invo lving ak chin coronary artery of ak chin heart without angina pectoris 09/04/2024 Overview (12/29/2024): -status post non-ST elevation MT in January 2024 with moderate nonobstructive epicardial [...] . S/P VATS R upper lobectomy [facility] 02/2018 Kidney stone 09/11/2020 Chronic headaches 05/05/2016 Current Oncology Plans No current plan information found. Past Plans No past plan information found. Radiation Treatments * No radiation treatments are documented for this patient in [facility]. Treatments may have been administered in another system. Lifetime Dose Tracking * Chemical Lifetime Dose Automatic Entry Manual Entr y CTDIvol 6.07 mGy 6.07 mGy 0 mGy Resolved Problems Problem Noted Date Diagnosed Date Resolved Date NSTEMI (non-ST elevated myoc ardial infarction) 12/25/2024 12/29/2024 History of non-ST elevation myocardial infarction (NSTEMI) 09/04/2024 12/29/2024 Assessment & Plan (09/04/2024 12:36 PM EST): Diagnosed during admission to [facility] in January 2024. Elevated troponins. Cardiac cath done, no stent placed. Was started on medical management.
== END 2025-01-09 15:34 | disposition home or self-care (01) ==
LOC: HO.MRI 15:33
PROVIDERS: Visit Provider Psychiatry & Neurology Neurology
DX: R20.0 Anesthesia of skin (principal)
CPT/HCPCS: 70553; A9585

== ENCOUNTER → 2025-01-09 16:00 | Outpatient (BNV) | payer MEDICARE, OTHER, SELFPAY | PROVIDERS: Visit Provider Radiology Diagnostic Radiology | DX: R90.82 White matter disease, unspecified (principal); I63.81 Other cerebral infarction due to occlusion or stenosis of small artery | CPT/HCPCS: 70553 ==